=== PATIENT | female | born 1930 | race Caucasian/White ===

== ENCOUNTER → 2016-05-30 | Outpatient (CLI) | payer OTHER ==
[~2016-05-30] MED LIST: AMLODIPINE BES2.5 MG PO; CALCIUM 600 W/V1 TA2 PO; FISH OIL 1,0001 EACH PO; LOTENSIN20 MG PO; MACROBID100 MG PO; METOPROLOL SUCC25 MG PO; METOPROLOL SUCC50 MG PO; VITAMIN D1000 UNIT PO; [UNRECOGNIZED DRUG - OTHER] PO
--- NOTE | ~2016-05-30 | US85 ---
[facility] A Service [facility] RADIOLOGY TEXT RESULTS PATIENT: ASHLEY CANCHOLA LOCATION: [facility] : 31 UNIT #: [id number] AGE: [address]: DENNIS JULIEN APRN SEX: F ORDER DR: [id number] [place] [id number] O MR#: [id number] Acc #: [id number] NAME: ASHLEY CANCHOLA. : 1930 SEX: F STUDY DATE/TIME: 05/30/2016 9:03 UNIT: SNIV ROOM: STUDY DESCRIPTION: LE Veins Unilat or Ltd Stdy Attending Physician: Dennis Julien Aprn Referring Physician: Dennis Julien Aprn Ordering Physician: Dennis Julien Aprn Primary Care Physician: Dennis Julien Aprn MEDICAL IMAGING REPORT This report is preliminary unless electronic signature is present. REVISED REPORT SEE ADDENDUM EXAM Left lower extremity duplex venous ultrasound INDICATIONS 86-year-old female with left groin pain for 3 weeks. TECHNIQUE Tello-scale, color Doppler and spectral Doppler waveform imaging of the deep venous structures of the left lower extremity was performed using compression and augmentation. No comparisons are available. FINDINGS There is no evidence of deep venous thrombosis. The talent development consultant initially questioned some possible thrombus within the great saphenous vein, however upon repeat imaging stated there was no thrombus. I do not see any evidence for great saphenous vein thrombus on the submitted images. IMPRESSION 1. The study is negative for DVT. Dictated by... Musa Martell M.D. THIS IS AN ELECTRONICALLY VERIFIED REPORT [facility] A [facility] RADIOLOGY TEXT RESULTS PATIENT: ASHLEY CANCHOLA LOCATION: [facility] : 31 UNIT #: [id number] AGE: [address]: DENNIS JULIEN APRN SEX: F ORDER DR: Musa Martell M.D. at 05/31/2016 10:48 AM ARS/psc TD: 05/30/2016 18:56 JOB #: [id number] ADDENDUM I discussed the findings with the talent development consultant by phone just now. She reports that the patient was brought back and re-scanned. At this point, she scanned further with attention directed to the great saphenous vein and determined that there was, in fact, no evidence of any clot within the great saphenous vein. As before, there is no evidence of DVT. JOB #: [id number] Dictated by... Musa Martell M.D. THIS IS AN ELECTRONICALLY VERIFIED REPORT Musa Martell M.D. at 06/09/2016 4:34 PM JAYDA/mely TD: 05/30/2016 20:16 JOB #: [id number] CC: Phuc/invision Please Delete MEDICAL IMAGING REPORT Page 1 of 1
== END | disposition home or self-care (01) ==
LOC: SNIV 08:44
DX: M79.652 Pain in left thigh (principal); R10.30 Lower abdominal pain, unspecified
CPT/HCPCS: 93971

== ENCOUNTER → 2016-06-27 | Outpatient (CLI) | payer OTHER ==
--- NOTE | ~2016-06-27 | XA30 ---
[facility] A Service of [facility] & [facility] RADIOLOGY TEXT RESULTS PATIENT: ASHLEY CANCHOLA [facility] 31 UNIT #: [id number] AGE: [address]: Vini Chowdhury MD SEX: F ORDER DR: [id number] [facility] [address] [place], [place] [address] [id number] O MR#: [id number] Acc #: [id number] NAME: ASHLEY CANCHOLA : 1930 SEX: F STUDY DATE/TIME: 06/27/2016 11:14 UNIT: [facility] ROOM: STUDY DESCRIPTION: XA Arthrocentesis Major Joint Attending Physician: Vini Chowdhury M.D. Referring Physician: Vini Chowdhury M.D. Ordering Physician: Vini Chowdhury M.D. Primary Care Physician: Ana Cristina Riley Aprn MEDICAL IMAGING REPORT This report is preliminary unless electronic signature is present EXAM Fluoroscopically guided left hip injection. INDICATION Left hip pain. PROCEDURE The risks, benefits and alternatives to the procedure wee explained to the patient and signed informed consent was obtained. She was placed supine on the angiographic table, prepped and draped in the usual sterile fashion. Time-out was performed as per protocol. Skin and subcutaneous tissues were anesthetized with buffered lidocaine and a 22-gauge spinal needle was advanced into the joint space and I instilled a combination of lidocaine, bupivacaine and Depo-Medrol. The needle was then removed and manual pressure was applied until hemostasis was obtained. The patient tolerated the procedure well and there were no immediate complications. Total fluoroscopy time was 0.6 minutes. Ak was 13 mGy. IMPRESSION Technically successful fluoroscopically guided left hip injection as noted above. Fluoroscopy was used during the procedure and permanent images were saved. Dictated by... Elisha Wallace M.D. THIS IS AN ELECTRONICALLY VERIFIED REPORT Elisha Wallace M.D. at 06/28/2016 12:55 PM AFF/cmsyd TD: 06/28/2016 09:46 [facility] A Service of [facility] & [facility] RADIOLOGY TEXT RESULTS PATIENT: ASHLEY CANCHOLA LOCATION: [facility] #: [id number] : 32 UNIT #: [id number] AGE: [address]: Vini Chowdhury MD SEX: F ORDER DR: JOB #: [id number] MEDICAL IMAGING REPORT Page 1 of 1 COPY
== END | disposition home or self-care (01) ==
LOC: CIVR 10:48
PROC: 3E0U33Z Introduction of Anti-inflammatory into Joints, Percutaneous Approach (ICD-10-PCS; principal; 2016-06-27)
PROC: 3E0U3BZ Introduction of Anesthetic Agent into Joints, Percutaneous Approach (ICD-10-PCS; 2016-06-27)
DX: M16.0 Bilateral primary osteoarthritis of hip (principal)
CPT/HCPCS: 77002; J1030; Q9966